=== PATIENT | male | born 1960 | race Caucasian/White ===

== ENCOUNTER 2017-09-01 18:36 | Emergency (ER) | payer BC ==
[2017-09-01] MEDS ORDERED: Lidocaine 2% EPI 1:200000 MPF* 20 ML VIAL ONE (19:36)
[2017-09-01 20:51] VITALS: BP 130/79
--- NOTE | 2017-09-02 00:49 | ED ---
Carmelo Wadsworth Tiffany, scribed for Tarun Storey MD on 09/01/17 at 1946 . Laceration/Wound HPI - HPI Summary HPI Summary: The patient is a 57 year old M accompanied by with a chief complaint of laceration above left eye s/p slipping on ice, falling over patio and landing 3 feet onto the ground two hours ago. The patient rates the pain 2/10 in severity. Symptoms aggravated by nothing. Symptoms alleviated by nothing. Patient denies neck pain, LOC and headache. Patient had 8 beers and a shot of tequBioSante Pharmaceuticals tonMiaopai. Patient has history of diabetes. He is not on blood thinners. - History of Current Complaint Stated Complaint: FALL/HEAD INJURY Time Seen by Provider: 09/01/17 19:22 Hx Obtained From: Patient Mechanism of Injury: Other - slipping on ice, falling over patio and landing 3 feet onto the ground Onset/Duration: Lasting Hours - 2 hours, Still Present, Resolved Aggravating: Nothing Alleviating: Nothing Current Severity: Mild Pain Intensity: 2 Pain Scale Used: 0-10 Numeric Associated Signs & Symptoms: Negative - Neck pain - Allergy/Home Medications Allergies/Adverse Reactions: Allergies Allergy/AdvReac Type Severity Reaction Status Date / Time No Known Allergies Allergy Verified 09/01/17 18:46 PMH/Surg Hx/FS Hx/Imm Hx Previously Healthy: No Endocrine/Hematology History: Reports: Hx Diabetes - Type II Opthamlomology History: Reports: Hx Contacts or Glasses EENT History: Denies: Hx Deafness Infectious Disease History: No Infectious Disease History: Denies: Traveled Outside the [place] in Last 30 Days - Family History Known Family History: Positive: Other - Pt denies knowledge of relevant family history - Social History Alcohol Use: Weekly Hx Substance Use: No Substance Use Type: Reports: None Hx Tobacco Use: Yes Smoking Status (MU): Former Smoker Review of Systems Positive: Other - NEGATIVE: neck pain Positive: Other - Laceration above left eye Neurological: Other - NEGATIVE: LOC Negative: Headache All Other Systems Reviewed And Are Negative: Yes Physical Exam - Summary Physical Exam Summary: General: well-appearing, no pain distress Skin: curvy, irregular, 6-cm laceration over lower left forehead extending to left eyebrow that is as deep as the muscle Head: normal Eyes: EOMI, KAMALA ENT: normal Neck: supple, nontender Respiratory: CTA, breath sounds present Cardiovascular: RRR Abdomen: soft, nontender Bowel: present Musculoskeletal: normal, strength/ROM intact Neurological: normal, sensory/motor intact, A&O x3 Psychological: affect/mood appropriate Triage Information Reviewed: Yes Vital Signs On Initial Exam: Initial Vitals Temp Pulse Resp BP Pulse Ox 97.9 F 88 20 137/75 98 09/01/17 18:40 09/01/17 18:40 09/01/17 18:40 09/01/17 18:40 09/01/17 18:40 Vital Signs Reviewed: Yes Procedures - Laceration/Wound Repair 1 Location: Other - Lower left forehead Description: Irregular Anesthesia: 2.0%, Epi Laceration/Wound Explored: no foreign body removed Closure: Multilayer - Inner layer closed with stiches; Outer layer closed with 11 stiches Diagnostics - Vital Signs Vital Signs Temp Pulse Resp BP Pulse Ox 09/01/17 18:40 97.9 F 88 20 137/75 98 - Laboratory Lab Statement: Any lab studies that have been ordered have been reviewed, and results considered in the medical decision making process. Laceration Repair Course/Dx - Course Course Of Treatment: 57 y/o M fell and sustained laceration to left side of face and forehead. Laceration repaired with sutures. Patient's neuro exam in tact. Last tetnus shot was 4 years ago. Patient discharged home with head injury and wound care instructions. He was instructed to remove sutures in 6-7 days. - Clinical Impression Provider Diagnoses: Head injury, Superficial laceration Discharge - Discharge Plan Condition: Stable Disposition: HOME Patient Education Materials: Care For Your Stitches (ED), Head Injury (ED) Referrals: Robert Lee MD [Primary Care Provider] - 6 Days Additional Instructions: Follow up with your primary care provider in 6-7 days to remove stitches. RETURN TO EMERGENCY DEPARTMENT FOR ANY NEW OR WORSENING SYMPTOMS The documentation as recorded by the Carmelo diane Tiffany accurately reflects the service I personally performed and the decisions made by , Tarun Storey MD.
== END 2017-09-01 20:51 | disposition home or self-care (01) ==
LOC: ED 18:36
DX: S01.112A Laceration without foreign body of left eyelid and periocular area, initial encounter (principal); S09.90XA Unspecified injury of head, initial encounter; W00.2XXA Other fall from one level to another due to ice and snow, initial encounter; M54.2 Cervicalgia; Y92.9 Unspecified place or not applicable; Z87.891 Personal history of nicotine dependence
CPT/HCPCS: 12001; 99282